=== PATIENT | female | born 1965 | race Caucasian/White ===

== ENCOUNTER 2017-03-04 10:31 | Inpatient (IN) | payer OTHER ==
[~2017-03-04] VITALS: Ht 160 cm; Wt 43.5 kg
--- NOTE | 2017-03-05 01:05 | NUR ---
PRE - ADMISSION NOTE: Patient is a 51 year old female AOX4, presented to [facility] to detoxify from Opioid/Heroin via IV. COWS 7. Patient appears anxious, nervous, tremors to touch, nasal stuffy, moist eyes, and sweating. Patient is cooperative, speech is clear and audible. Patient reports allergy to PCN. Patient's vital signs are as follows: BP 135/61/77, HR 83, T: 98.3, RA SPO2 98%, pain level "0/10". Patient denies any pain at this time. Patient instructed on unit protocol of vitals Q4H and COWS/CIWA assessments. Patient verbalized understanding and agreement. Patient also instructed on policy regarding destruction of any controlled substances/prescriptions brought to facility, and handling of all medications. Patient verbalized understanding and agreement. Will complete admission assessment when patient is brought up to unit.
[2017-03-05 01:12] VITALS: BP 135/61
--- NOTE | 2017-03-05 01:12 | NUR ---
ADMISSION NOTE New patient is a 51 year old female admitted to [facility] on 03/05/2017 at 0112 for medically supervised safety withdrawal from Opioid. Patient reports Allergy to Penicillin. Patient is on Full Code, Regular Diet, and Fall Precautions. Patient denies a history of withdrawal-induced seizures. Past Medical History: Anxiety, Depression, and Hepatitis C. Patient denies Past Surgical History. Patient "does not has PCP". Pre-assessment completed in intake. Patient provided UDS and Urine HCG, Qual test at this time. Height: 64in, Weight: 96 lbs by standing scale. Patient is ambulatory with steady gate, A&Ox4, speech is clear. VS upon admission: BP 135/61/77, HR 83, T: 98.3, RA SPO2 98%, RR: 19, pain level "0/10". COWS 7. Patient appears anxious, nervous, tremors to touch, nasal stuffy, moist eyes, and sweating. Patient denies SI/HI. Upon initial assessment respirations unlabored and even. Patient denies cough, SOB and chest pain. Lungs Sounds are clear bilaterally. Bowel Sounds active in all x4 quadrants. Abdomen is soft and non-tender. PERRLA, brisk capillary refill, manufacturing supervisor 2nd shift equal and strong. Skin is intact, warm and dry to touch. Patient reports the following Substances Use: "Heroin via IV 5-6 grams every day during last 1,5 years. Last used 3 grams on 03/04/2017 @AM". Longest sober period was "15 years: 1999 - 2014". Patient reports "Tobacco use since 1981 every day 1 pack = 20 cigarettes". Patient reports Treatment History: "[facility] in 1999". Patient did not brought medications. Patient oriented to his room, Nurse Call Light, and [facility] Floor. Encourage fluids as tolerated. Encourage to attend activities groups. All needs met. Safety measures on place. Call light within reach, bed in lowest position and locked, rails up bilaterally. Will continue to monitor closely.
[2017-03-05] MEDS ORDERED: BUPRENORPHINE HCL 2 MG TAB.SUBL SL PRN (01:30)
[2017-03-05] MEDS ORDERED: ONDANSETRON 4 MG/2 ML VIAL IM PRN (01:30)
[2017-03-05] MEDS ORDERED: DICYCLOMINE HCL 20 MG TABLET PO PRN (01:30)
[2017-03-05] MEDS ORDERED: MAGNESIUM HYDROXIDE 30 ML LIQUID UDC PO PRN (01:30)
[2017-03-05] MEDS ORDERED: LOPERAMIDE HCL 2 MG CAPSULE PO PRN ×2 (01:30)
[2017-03-05] MEDS ORDERED: CLONIDINE HCL 0.1 MG TABLET PO PRN (01:30)
[2017-03-05] MEDS ORDERED: ONDANSETRON ODT 4 MG TAB.RAPDIS SL PRN (01:30)
[2017-03-05] MEDS ORDERED: MIRALAX 17 GM POWD.PACK PO PRN (01:30)
[2017-03-05] MEDS ORDERED: MAG HYDROX/AL HYDROX/SIMETH 30 ML LIQUID UDC PO PRN (01:30)
[2017-03-05] MEDS ORDERED: IBUPROFEN 400 MG TABLET PO PRN (01:30)
[2017-03-05] MEDS ORDERED: ACETAMINOPHEN 325 MG TABLET PO PRN (01:30)
[2017-03-05] MEDS ORDERED: HYDROXYZINE PAMOATE 25 MG CAPSULE PO PRN (01:30)
[2017-03-05] MEDS: diphenhydrAMINE 50 MG CAPSULE PO PRN (01:49)
--- NOTE | 2017-03-05 01:49 | NUR ---
PRN BENADRYL 50 MG 1 CAP PO AND PRN VISTARIL 50 MG 2 CAP PO ADMINISTRATION Patient c/o insomnia and increased anxiety. PRN Benadryl 50 mg 1 cap PO and PRN Vistaril 50 mg 2 capsule PO administrated with full glass of water as ordered. Patient tolerated well. All needs met. Safety measures on place. Call light within reach, bed in lowest position and locked, bed rails up bilaterally. Will continue to monitor closely.
[2017-03-05 01:58] LABS: BASOPHILS % (AUTO) 0.7 % (0.0-2.0); EOSINOPHILS # (AUTO) 0.1 K/uL (0.0-0.7); EOSINOPHILS % (AUTO) 1.3 % (0.0-7.0); HEMATOCRIT 39.2 % (31.2-41.9); HEMOGLOBIN 13.2 g/dL (10.9-14.3); LYMPHOCYTES # (AUTO) 1.7 K/uL (20.0-40.0); LYMPHOCYTES % (AUTO) 30.4 % (20.5-51.5); MEAN CORPUSCULAR HEMOGLOBIN 27.8 uug (24.7-32.8); MEAN CORPUSCULAR HGB CONC 34 g/dL (32.3-35.6); MEAN CORPUSCULAR VOLUME 82.2 fL (75.5-95.3); MONOCYTES # (AUTO) 0.4 K/uL (2.0-10.0); MONOCYTES % (AUTO) 7.3 % (0.0-11.0); NEUTROPHILS # (AUTO) 3.3 K/uL (1.8-8.9); NEUTROPHILS % (AUTO) 60.3 % (38.5-71.5); PLATELET COUNT (AUTO) 235 K/uL (179-408); RED BLOOD CELL COUNT(AUTO) 4.77 MIL/uL (3.63-4.92); WHITE BLOOD COUNT (AUTO) 5.5 K/uL (3.8-11.8)
[2017-03-05 01:58] LABS: *URINE HCG, QUAL NEGATIVE (NEGATIVE)
[2017-03-05] MEDS ORDERED: diphenhydrAMINE 50 MG CAPSULE ONE (01:59)
[2017-03-05] MEDS ORDERED: HYDROXYZINE PAMOATE 25 MG CAPSULE ONE (01:59)
[2017-03-05 02:08] LABS: *AMPHETAMINE, URINE POSITIVE (NEGATIVE); *BARBITURATE, URINE NEGATIVE (NEGATIVE); *CANNABINOID, URINE NEGATIVE (NEGATIVE); *COCCAINE, URINE NEGATIVE (NEGATIVE); *OPIATE, URINE POSITIVE (NEGATIVE); *PHENCYCLIDINE SCREEN,URINE NEGATIVE (NEGATIVE)
[2017-03-05 02:27] LABS: ALANINE AMINOTRANSFERASE 30 U/L (14-59); ALKALINE PHOSPHATASE 92 U/L (50-136); AMYLASE 47 U/L (25-115); ASPARTATE AMINOTRANSFERASE 31 U/L (15-37); BILIRUBIN,TOTAL 0.4 mg/dL (0.2-1.0); CARBON DIOXIDE 28 mmol/L (21-32); CHLORIDE 103 mmol/L (98-107); CREATININE 0.7 mg/dL (0.6-1.3); GLUCOSE 96 mg/dL (74-106); LIPASE 147 U/L (73-393); MAGNESIUM 1.8 mg/dL (1.8-2.4); POTASSIUM 3.1 mmol/L (3.5-5.1); TOTAL PROTEIN, SERUM 8.6 g/dL (6.4-8.2); UREA NITROGEN, BLOOD 10 mg/dL (7-18)
[2017-03-05 02:35] LABS: THYROID STIMULATING HORMONE 0.466 mIU/mL (0.358-3.740)
[2017-03-05 02:36] LABS: ETHANOL < 3 MG/DL (0-0)
--- NOTE | 2017-03-05 02:49 | NUR ---
RE-ASSESSMENT Patient is sleeping. Respirations even and unlabored. RR 16. PRN Benadryl 50 mg 1 cap PO and PRN Vistaril 50 mg 2 capsule PO administrated @0149 were effective. All needs met. Safety measures on place. Call light within reach, bed in lowest position and locked, bed rails up bilaterally. Will continue to monitor closely.
[2017-03-05 04:00] VITALS: BP 142/67
[2017-03-05] MEDS ORDERED: POTASSIUM CHLORIDE 20 MEQ TAB.PRT.SR PO ONE (04:00)
--- NOTE | 2017-03-05 06:55 | NUR ---
END OF SHIFT Patient is a 51 year old female admitted on 03/05/2017 for Heroin dependence. Patient verbalized that she does not know why in UDS test result is positive for amphetamines. Patient reports Allergy to Penicillin. Patient is on Full Code, Regular Diet, and Fall Precautions. Patient denies a history of withdrawal-induced seizures. Past Medical History: Anxiety, Depression, and Hepatitis C. Patient denies Past Surgical History. Patient denies SI/HI. Last COWS 7 @0400. Patient presented with anxiety, agitation, nervousness, restlessness, nasal stuffy, moist eyes, and sweating. Respirations unlabored and even. Patient denies cough, SOB and chest pain. Abdomen is soft and non-tender. Skin is intact, warm and dry to touch. Last VS @0400: T: 98.3, HR: 83, BP: 142/67, RA SPO2: 100%, RR 18, pain level "0/10". Respirations unlabored and even. Patient denied cough, SOB, and chest pain. Abdomen is soft and non-tender. Skin remains intact, warm, and dry to touch. PRN Benadryl 50 mg 1 capsule PO administrated for insomnia @0149 and PRN Vistaril 50 mg 2 cap PO administrated for anxiety @0149 were effective. Patient slept 4 hours, intake 500 ml, voided x2. Encouraged fluids intake as tolerated. Encouraged to attend groups activities. All needs met. Safety measures on place. Call light within reach, bed in lowest position and locked, bed rails up bilaterally. Patient endorsed to day shift nurse. Report given. Will continue to monitor closely.
--- NOTE | 2017-03-05 07:30 | NUR ---
START OF SHIFT Pt 51 y/o female admitted for opioid dependence. Pt received in room on bed with eyes closed resting, but easily arousable to name. Pt alert and oriented to name, place, and time. Perrla. Skin warm and slightly moist to touch. Respirations even and unlabored. Pt appears slightly anxious this morning. Pt with goosebumps noted on bilateral arms. It was reported that pt slept for 4 hours last night. Bed on lowest position with side rails x2 up for safety. Call light within reach. No distress noted at this time.
[2017-03-05 08:00] VITALS: BP_SYST 109; BP_SYST 122; BP_DIAS 62; BP_DIAS 64
[2017-03-05] MEDS: METHOCARBAMOL 750 MG TABLET PO PRN (08:57)
[2017-03-05] MEDS: MULTIVITAMINS,THERAPEUTIC TABLET PO SCH (08:57)
--- NOTE | 2017-03-05 08:57 | NUR ---
PRN Pt states has generalized body aches /10. Robaxin po prn per MD order given and tolerated well.
--- NOTE | 2017-03-05 08:57 | NUR ---
PRN Pt with cows=13. Pt anxious and restless while laying in bed. Goosebumps noted. Pt also with c/o bodyaches, chills and sweats. Subutex sl prn per MD order given and tolerated well.
[2017-03-05] MEDS ORDERED: TUBERCULIN,PURIF.PROT.DERIV. 5 TU/0.1 ML TEST ID ONE (09:00)
--- NOTE | 2017-03-05 09:57 | NUR ---
PRN EVAL Pt with cows=3. Pt observed on in room with eyes closed resting, but easily arousable to name. No distress noted at this time.
--- NOTE | 2017-03-05 09:57 | NUR ---
ESTRELLA HUTTON Pt denies any body aches at this time.
[2017-03-05] MEDS ORDERED: LORAZEPAM 1 MG TABLET PO PRN (11:30)
[2017-03-05] MEDS: BUPRENORPHINE HCL 2 MG TAB.SUBL SL SCH ×3 (12:20→20:43)
--- NOTE | 2017-03-05 12:22 | NUR ---
PRN Pt agitated and restless in room. Ativan po prn per MD order given and tolerated well.
[2017-03-05 12:23] VITALS: BP 134/61
--- NOTE | 2017-03-05 13:22 | NUR ---
ESTRELLA HUTTON Pt observed in room on bed with eyes closed resting, but easily arousable to name. No distress noted at this time.
[2017-03-05] MEDS ORDERED: NICOTINE 14 MG/24HR PATCH TD PRN (13:30)
[2017-03-05] MEDS ORDERED: NICOTINE POLACRILEX 4 MG GUM-PK OF TEN BC PRN (13:30)
[2017-03-05 17:25] VITALS: BP 106/61
--- NOTE | 2017-03-05 18:46 | NUR ---
END OF SHIFT Pt 51 y/o female admitted for opioid dependence. Pt alert and oriented to name, place, and time. Perrla. Skin warm and moist to touch throughout the day. Pt with episodes of experiencing goosebumps throughout the day. Pt also with periods of anxiety this morning. Pt isolative to room with minimal peer interaction. Pt did not attend group activity today. Pt medication compliant and tolerated well. No ASE noted. Pt was seen by MD today. Bed on lowest position with side rails x2 up for safety. Call light within reach. No distress noted at this time. Pt started on a 5 day subutex taper today.
--- NOTE | 2017-03-05 18:46 | NUR ---
START OF SHIFT Patient is a 51 year old female admitted on 03/05/2017 for Heroin dependence, continue ordered 5 day Subutex Taper, which tolerated well without ASE. Patient reports Allergy to Penicillin. Patient is on Full Code, Regular Diet, and Fall Precautions. Patient denies a history of withdrawal-induced seizures. Past Medical History: Anxiety, Depression, and Hepatitis C. Patient denies Past Surgical History. Patient alert and orientedx4. COWS 5 @0400. Patient presented with anxiety, agitation, nervousness, restlessness, tremors that can be felt, and sweating. VS: T: 97.4, HR: 62, BP: 109/64, RA SPO2: 100%, RR: 18, pain level "0/10". Respirations unlabored and even. Patient denies cough, SOB and chest pain. Abdomen is soft and non-tender. Skin is intact, warm and dry to touch. Respirations unlabored and even. Patient denied cough, SOB, and chest pain. Abdomen is soft and non-tender. Skin is intact, warm, and dry to touch. Encouraged fluids intake as tolerated. Encouraged to attend groups activities. All needs met. Safety measures on place. Call light within reach, bed in lowest position and locked, bed rails up bilaterally. Patient endorsed to day shift nurse. Report given. Will continue to monitor closely.
[2017-03-05 20:00] VITALS: BP 109/64
[2017-03-05] MEDS: GABAPENTIN 300 MG CAPSULE PO SCH (20:42)
[2017-03-06] VITALS: BP 125/71
[2017-03-06 04:00] VITALS: BP 109/69
[2017-03-06 05:56] LABS: HEPATITIS B SURFACE AG Negative (Negative)
--- NOTE | 2017-03-06 07:02 | NUR ---
END OF SHIFT Patient is a 51 year old female admitted on 03/05/2017 for Heroin dependence, continues 5 day Subutex taper. She is tolerated well without ASE. Patient remains compliant with treatment, medications, and diet regime. Patient reports Allergy to Penicillin. Patient is on Full Code, Regular Diet, and Fall Precautions. Patient denies a history of withdrawal-induced seizures. Past Medical History: Anxiety, Depression, and Hepatitis C. Patient denies SI/HI. Last COWS 8 @0400. Patient presented with anxiety, agitation, nervousness, restlessness, nasal stuffy, moist eyes, and sweating. Last VS @0400: T: 98.4, HR: 82, BP: 109/69, RA SPO2: 98%, RR 16, pain level "0/10". Respirations unlabored and even. Patient denied cough, SOB, and chest pain. Skin remains intact, warm, and dry to touch. No PRN administrated last night cleaner. Patient slept 8 hours, intake 296 ml, voided x1. Encouraged fluids intake as tolerated. Encouraged to attend groups activities. All needs met. Safety measures on place. Call light within reach, bed in lowest position and locked, bed rails up bilaterally. Patient endorsed to day shift nurse. Report given.
--- NOTE | 2017-03-06 07:30 | NUR ---
START OF SHIFT NOTE Received report from night nurse, 51 year old female admitted for Opioid dependence. Patient has PMH of Anxiety, Depression, and Hepatitis C. Per endorsement patient did not receive any PRN'S, slept for 8 hours, and her COWS-8 at 0400. Received patient in room alert and oriented x 4. Educated patient on the current plan of care for the day and medication regimen. Safety measures in place. call light kept with in reach, Will continue to monitor.
[2017-03-06 08:00] VITALS: BP 139/90
[2017-03-06] MEDS: BUPRENORPHINE HCL 2 MG TAB.SUBL SL SCH ×3 (08:15→20:23)
[2017-03-06] MEDS: GABAPENTIN 300 MG CAPSULE PO SCH ×3 (08:15→20:22)
[2017-03-06] MEDS: MULTIVITAMINS,THERAPEUTIC TABLET PO SCH (08:15)
[2017-03-06 13:00] VITALS: BP 128/84
[2017-03-06] MEDS: DICYCLOMINE HCL 20 MG TABLET PO SCH ×2 (14:05→20:22)
[2017-03-06 16:00] VITALS: BP 124/78
[2017-03-06] MEDS: IBUPROFEN 600 MG TABLET PO PRN (16:57)
--- NOTE | 2017-03-06 16:57 | NUR ---
PRN IBUPROFEN Pt c/o 11/01 toothache, PRN Motrin 600mg PO administered as ordered. Assigned nurse to reassess.
--- NOTE | 2017-03-06 17:57 | NUR ---
MOTRIN REASSESSMENT Patient reported PRN Motrin was effective tooth ache decreased to 2/10. .
--- NOTE | 2017-03-06 19:05 | NUR ---
END OF SHIFT NOTE Patient cont with 5 days Subutex tolerating well. During shift patient received PRN Motrin for headache noted to be effective. Vital signs remained WNL. Patient attend groups and activities. Encourage Po fluids as tolerated. Last COWS score was 5 @ 1600. All needs attended, Safety measures in place, call light within reach. Patient endorsed to night nurse in stable condition.
--- NOTE | 2017-03-06 19:30 | NUR ---
Start of Shift Note: Report received from day shift nurse. Pt is a 51F, admitted for Heroin Dependence on 03/05/17. Pt was in room watching TV upon start of shift. Pt is AOx4 without s/s of acute distress noted. Pt is full code, on regular diet, and on fall precautions. Pt noted with allergy to Penicillins. Pt reports hx of Anxiety, Depression, and Hepatitis C. Pt is currently on 5-day Subutex taper to manage withdrawal symptoms. Per day shift nurse, pts last COWS was 5 at 1600. Bed in lowest position. Side rails up x2. Call light functioning and within reach. All needs attended and met. Will continue to monitor.
[2017-03-06 20:00] VITALS: BP 129/60
[2017-03-06] MEDS: diphenhydrAMINE 50 MG CAPSULE PO PRN (20:22)
--- NOTE | 2017-03-06 20:22 | NUR ---
Benadryl PRN: Pt c/o inability to sleep. Benadryl PRN given as ordered. Will continue to monitor.
[2017-03-06] MEDS: CLONIDINE HCL 0.1 MG TABLET PO SCH (20:36)
[2017-03-07] VITALS (7 sets, daily range): BP systolic 104–132; BP diastolic 44–78
[2017-03-07] MEDS: HYDROXYZINE PAMOATE 25 MG CAPSULE PO PRN (00:23)
--- NOTE | 2017-03-07 00:23 | NUR ---
Vistaril PRN: Pt c/o anxiety due to being unable to sleep. Vistaril PRN given as ordered. Will reassess.
--- NOTE | 2017-03-07 01:23 | NUR ---
Vistaril Reassessment: Pt stated she is still anxious about being unable to sleep but would like to try sleeping on her own. Will continue to monitor.
--- NOTE | 2017-03-07 02:33 | NUR ---
Clonidine PRN: Pt stated she is starting to feel anxious and agitated about her inability to sleep. BP 122/77, HR 81. Clonidine PRN given as ordered.
--- NOTE | 2017-03-07 03:30 | NUR ---
Clonidine Reassessment: Pt still awake but calm. Clonidine effective.
--- NOTE | 2017-03-07 06:58 | NUR ---
End of Shift Notes: Pt is 51F, admitted for Heroin Dependence on 03/05/17. Pt is AOx4 without s/s of acute distress. Pt is full code, on regular diet, and on fall/seizure precautions. Pt noted with allergy to Penicillins. Pt reports hx of Anxiety, Depression, and Hepatitis C. Pt slept for 3 hours. Respirations even and unlabored. Last COWS was 6 at 2000. Pt reported inability to sleep. Benadryl, Vistaril, Clonidine PRN given but was ineffective. Pt to talk to psychiatrist about getting sleep medication. No N/V noted during the shift. Fall precautions observed. Bed in lowest position. Side rails up x2. Call light functioning and within reach. All needs attended and met. Will endorse to day shift nurse.
[2017-03-07] MEDS: DICYCLOMINE HCL 20 MG TABLET PO SCH ×3 (08:42→20:50)
[2017-03-07] MEDS: CLONIDINE HCL 0.1 MG TABLET PO SCH (08:42)
[2017-03-07] MEDS: GABAPENTIN 300 MG CAPSULE PO SCH ×3 (08:42→20:51)
[2017-03-07] MEDS: MULTIVITAMINS,THERAPEUTIC TABLET PO SCH (08:43)
--- NOTE | 2017-03-07 08:43 | NUR ---
PRN MIRALAX POWDER Patient complains of constipation, last BM reported was 03/05/17. Miralax powder given. Will continue to moniopr patient.
[2017-03-07] MEDS ORDERED: BUPRENORPHINE HCL 2 MG TAB.SUBL SL SCH (09:00)
--- NOTE | 2017-03-07 09:04 | NUR ---
START OF SHIFT Received report from forms examiner nurse. Patient is 51 year old female admitted for medically supervised withdrawal from heroin. Patient is full code with allergy to penicinllin. On 5-day subutex taper. On assessment this AM: COWS: 3. Denies SOB, chest pain. Patients vitals signs WNL. Patient reports anxiety and stomach cramps. Denies stuffy nose, tremors, sweating, nausea, vomiting, diarrhea, body aches, goosebumps at this time. Compliant with AM meds. Complained of constipation, PRN miralax powder given. Tolerated breakfast without n/v and consumed about 80%. Patient has steady gait. Encouraged to attend group meetings today. Will continue to monitor patient. Addendum: 03/07/17 at 0917 by LYNETTE GARCÍA RN Patient complains of poor sleep, will notify psychiatrist.
[2017-03-07] MEDS: BUPRENORPHINE HCL 2 MG TAB.SUBL SL SCH ×2 (14:30→20:50)
--- NOTE | 2017-03-07 14:37 | NUR ---
Therapist prompted client about group times. Client stated she will attend all groups today.
[2017-03-07] MEDS ORDERED: PNEUMOCOCCAL 23-VAL P-SAC VAC 0.5 ML VIAL IM ONE (15:00)
[2017-03-07] MEDS ORDERED: INFLUENZA VACCINE 2017-2018 0.5 ML DISP.SYRIN IM ONE (15:00)
[2017-03-07] MEDS: IBUPROFEN 600 MG TABLET PO PRN (15:37)
--- NOTE | 2017-03-07 15:37 | NUR ---
Motrin 600mg PO given: Patient complained of 4/10 toothache. Able to chew oral intake. Non-pharmacological interventions provided but ineffective. Medicated patient with Motrin 600 mg PO as ordered. Will monitor for effectiveness.
--- NOTE | 2017-03-07 16:37 | NUR ---
REASSESSMENT PRN CHARISMARIN Patient reports 0/10 pain. Med effective.
--- NOTE | 2017-03-07 18:54 | NUR ---
END OF SHIFT Patient is 51 year old female admitted for medically supervised withdrawal from heroin. Patient is full code with allergy to penicinllin. On 5-day subutex taper. Most recent COWS: 2. Reports mild anxiety and body aches. Denies tremors, sweating, nausea, vomiting, stomach cramps, diarrhea, body aches, goosebumps at this time. Med complaint this shift. PRN miralax powder given for constipation, pending result. PRN motrin given for 4/10 toothache, effective 0/10 pain. PPD skin test read on LFA, negative. Ambulating with steady gait, no falls noted. No BM this shift. Encouraged to attend group meetings today. Will continue to monitor patient.
--- NOTE | 2017-03-07 19:15 | NUR ---
Start of Shift Note: Patient is a 51 y.o female admitted on 03/05/17 for Opiate dependence. Patient reported using Heroin 5-6 grams daily for 1 and a half years. Patient has PMHx of anxiety, Depression & Hepatitis C. No seizure history noted. Patient is on a regular diet with allergies to Penicillins. Full Code status noted. Skin noted to be intact. Patient is on a 5-day Subutex taper and tolerating well. Last COWS 2. Pt was given PRN Motrin & Miralax during day shift. Patient is alert & oriented x4. Patient is ambulatory with a steady gait. No shortness of breath noted. Respiration even & unlabored. Abdomen soft & non-distended. No nausea/vomiting noted. Patient complained of stomach cramps, 3/10 generalized body discomfort, sweating, chills & anxiety. No hand tremors noted. Patient denies SI/HI. Safety precautions are in place. Bed locked in lowest position. Both side rails up. Call light within pt's reach. Will continue to monitor patient.
[2017-03-07] MEDS: CLONIDINE HCL 0.2 MG TABLET PO SCH (20:50)
--- NOTE | 2017-03-07 20:50 | NUR ---
PRN Milk of Magnesia Pt received PRN Miralax during day time and was not effective. Pt still noted with no BM. PRN Milk of Magnesia administered as ordered. WIll continue to monitor effectiveness of medication.
--- NOTE | 2017-03-07 21:04 | NUR ---
MD Communication: Pt reports that PRN Benadryl not effective for sleep. Dr Sandhu contacted and new order received for PRN Trazodone 50mg PO HS PRN, may repeat x1 if necessary.
[2017-03-07] MEDS: TRAZODONE 50 MG TABLET PO PRN (21:39)
--- NOTE | 2017-03-07 21:39 | NUR ---
PRN Trazodone Patient complained of unable to fall asleep. PRN Trazodone administered as ordered. Will continue to monitor patient.
--- NOTE | 2017-03-07 23:00 | NUR ---
PRN Reassessment Patient asleep in bed and appears comfortable. No s/s of distress noted. Safety measures in place. Will continue to monitor patient.
[2017-03-08] VITALS: BP 95/48
[2017-03-08 04:00] VITALS: BP 92/40
--- NOTE | 2017-03-08 07:07 | NUR ---
End of Shift Note: Patient had an uneventful night. Patient continues on her Subutex taper and tolerating well. Last COWS is 4. Pt reported that taper medication is effective in controlling her withdrawal symptoms. Pt received PRN Milk of Magnesia for constipation & Trazodone for sleep. Patient remained stable and vitals WNL. Pt remained compliant with medications and treatment. Pt still asleep at this time with no s/s of distress noted. Patient slept for a total of 8 hours. Fluid intake: 855ml Voided 2x. Still no bowel movement noted. Will continue to monitor for BM. All needs attended & met. Safety measures in place. Will endorse pt to day shift nurse.
--- NOTE | 2017-03-08 07:31 | NUR ---
BEGINNING OF SHIFT Patient endorsement report received from night worker nurse, all pertinent information discussed. Patient is a 51 year old female, with admitting Dx: opiate dependence. Patient currently with on 5 day Subutex taper started on 03/05/2017, currently scheduled to begin day 3 of taper. Patient with last cow score of: 4. Received PRN: Milk of magnesium, and trazodone. Patient slept for 8 hours. Patient received awake, alert and oriented x4, educated regarding plan of care for the day and medication regimen. safety measures in place. fall and seizure precautions observed. will continue to monitor closely.
[2017-03-08 08:01] VITALS: BP 90/67
[2017-03-08] MEDS: CLONIDINE HCL 0.1 MG TABLET PO SCH (09:00)
[2017-03-08] MEDS: GABAPENTIN 300 MG CAPSULE PO SCH ×3 (09:03→20:39)
[2017-03-08] MEDS: DICYCLOMINE HCL 20 MG TABLET PO SCH ×3 (09:03→20:39)
[2017-03-08] MEDS: IBUPROFEN 600 MG TABLET PO PRN ×3 (09:03→20:39)
[2017-03-08] MEDS: MULTIVITAMINS,THERAPEUTIC TABLET PO SCH (09:03)
--- NOTE | 2017-03-08 09:03 | NUR ---
PRN MOTRIN Patient c/o toothache 11/01, provided with non pharmacological interventions with no relief, adminstered motrin 600 mg po as ordered, will monitor effectiveness of medication.
[2017-03-08] MEDS: BUPRENORPHINE HCL 2 MG TAB.SUBL SL SCH ×3 (09:04→20:40)
--- NOTE | 2017-03-08 10:03 | NUR ---
MOTRIN REASSESSMENT Patient reports medication effective, decrease in toothache current pain level 2/10, tolerable as per patient. will continue to monitor.
--- NOTE | 2017-03-08 12:37 | NUR ---
Therapist prompted to come to group, client agreed to attend.
[2017-03-08 13:30] VITALS: BP 107/59
--- NOTE | 2017-03-08 15:23 | NUR ---
PRN Motrin 600mg PO administered for Left upper molar pain 11/01. Call light within reach. Primary nurse to reassess in an hour.
--- NOTE | 2017-03-08 16:23 | NUR ---
MOTRIN REASSESSMENT Patient reports medication effective, decrease in toothache current pain level 2/10, tolerable as per patient. will continue to monitor.
[2017-03-08 17:33] VITALS: BP 111/64
--- NOTE | 2017-03-08 19:04 | NUR ---
END OF SHIFT Patient alert and oriented x4, vital signs with in normal limits during shift. Patient compliant with therapeutic plan of care. Patient with admitting Dx: opiate dependence. Continues on 5 day Subutex taper as ordered, well tolerated. Patient currently on day 3 of taper, well tolerated. No ASE noted. 0900 assessment patient presented with: heart rate of: 84, c/o chills, mild bone and joint aches, stomach cramps, and mild anxiety with cow score of: 5; 1300 assessment patient presented with: c/o chills, mild bone and joint aches, stomach cramps, and mild anxiety with cow score of: 5; 1700 assessment patient presented with: c/o chills, mild bone and joint aches, stomach cramps, and mild anxiety with cow score of: 5. During shift patient received PRN Motrin x2 as ordered for right upper molar toothache., medication effective. Patient encouraged adequate PO fluid intake as tolerated. Encouraged patient to attend group therapies/sessions to learn new coping skills to prevent relapse, noted attending and participating. Patient denies any SI/HI. Safety measures in place. Call light kept with in reach, patient endorsed to night patrol inspector nurse, all pertinent information discussed.
--- NOTE | 2017-03-08 19:15 | NUR ---
Start of Shift Note: Patient is a 51 y.o female admitted on 03/05/17 for Opiate dependence. Patient has PMHx of anxiety, Depression & Hepatitis C. No seizure history noted. Patient is on a regular diet with allergies to Penicillins. Full Code status noted. Skin noted to be intact. Patient continues on a 5-day Subutex taper and tolerating well. Last COWS 4. Pt was given PRN Motrin 2x for toothache during day shift and was effective. Patient is alert & oriented x4. Patient is ambulatory with a steady gait. No shortness of breath noted. Respiration even & unlabored. Abdomen soft & non-distended. No nausea/vomiting noted. Patient complained of stomach cramps, 3/10 generalized body discomfort, sweating, chills, stuffy nose & anxiety. Hand tremors felt but not seen. Patient denies SI/HI. Safety precautions are in place. Bed locked in lowest position. Both side rails up. Call light within pt's reach. Will continue to monitor patient.
[2017-03-08 20:00] VITALS: BP 126/63
[2017-03-08] MEDS: DOCUSATE SODIUM 100 MG CAPSULE PO SCH (20:39)
[2017-03-08] MEDS: TRAZODONE 50 MG TABLET PO PRN (20:39)
--- NOTE | 2017-03-08 20:39 | NUR ---
PRN Trazodone & Motrin Patient complains that she is unable to fall asleep and also complains toothache. PRN Trazodone and Motrin administered as ordered. Will continue to monitor patient.
[2017-03-08] MEDS: BENZOCAINE ORAL CARE 12 ML BOTTLE MM PRN (20:41)
[2017-03-08] MEDS: CLONIDINE HCL 0.2 MG TABLET PO SCH (21:00)
--- NOTE | 2017-03-08 21:39 | NUR ---
PRn Reassessment Pt still awake at this time. Pt verbalized relief from toothache. Pt observed walking in the hallway with no facial grimacing noted. Will continue to monitor patient.
[2017-03-09] MEDS: HYDROXYZINE PAMOATE 25 MG CAPSULE PO PRN (03:07)
[2017-03-09] MEDS: METHOCARBAMOL 750 MG TABLET PO PRN (03:08)
--- NOTE | 2017-03-09 03:08 | NUR ---
PRN RObaxin and Vistaril Patient complains of anxiety & body aches. PRN Robaxin PO & Vistaril PO administered as ordered. Will continue to monitor patient.
--- NOTE | 2017-03-09 04:08 | NUR ---
PRN Reassessment Pt asleep in bed at this time and appears comfortable. No facial grimacing noted. No s/s of any distress. Safety measures in place. Will continue to monitor patient.
[2017-03-09] MEDS: IBUPROFEN 600 MG TABLET PO PRN ×3 (06:06→21:00)
--- NOTE | 2017-03-09 07:21 | NUR ---
End of Shift Note: Patient is a 51 y.o female admitted for Opiate dependence. Patient had an uneventful night. Patient continues on her Subutex taper and tolerating well. Last COWS is 3. Pt reported that taper medication is effective in controlling her withdrawal symptoms. Pt received PRN Trazodone, Motrin x2, Anbesol, Vistaril & Robaxin during my shift and was effective. Patient remained stable and vitals WNL. Pt remained compliant with medications and treatment. Patient slept for a total of 3 hours. Fluid intake: 1557ml. Will continue to encourage pt to increase fluid intake. Voided 3x and no bowel movement noted. Will continue to monitor for BM. All needs attended & met. Safety measures in place. Will endorse pt to day shift nurse.
--- NOTE | 2017-03-09 07:32 | NUR ---
BEGINNING OF SHIFT Patient endorsement report received from warehouse shift supervisor nurse, all pertinent information discussed. Patient is a 51 year old female, with admitting Dx: opiate dependence. Patient currently with on 5 day Subutex taper started on 03/05/2017, currently scheduled to begin day 4 of taper. Received PRN: Motrin x2, Anbesol, Trazodone, Vistaril, and Robaxin. Patient slept for 6 hours. Patient received awake, alert and oriented x4, educated regarding plan of care for the day and medication regimen. safety measures in place. fall and seizure precautions observed. will continue to monitor closely.
[2017-03-09 08:42] VITALS: BP 150/71
[2017-03-09] MEDS: BENZOCAINE ORAL CARE 12 ML BOTTLE MM PRN (08:43)
--- NOTE | 2017-03-09 08:43 | NUR ---
PRN ANBESOL PRN Anbesol administered as ordered for Left upper molar pain. Call light within reach. Will monitor effectiveness of medication.
[2017-03-09] MEDS: CLONIDINE HCL 0.1 MG TABLET PO SCH (08:44)
[2017-03-09] MEDS: GABAPENTIN 300 MG CAPSULE PO SCH ×3 (08:44→21:00)
[2017-03-09] MEDS: MULTIVITAMINS,THERAPEUTIC TABLET PO SCH (08:44)
[2017-03-09] MEDS: DICYCLOMINE HCL 20 MG TABLET PO SCH ×3 (08:45→21:00)
[2017-03-09] MEDS ORDERED: BUPRENORPHINE HCL 2 MG TAB.SUBL SL SCH (09:00)
--- NOTE | 2017-03-09 09:43 | NUR ---
MOTRIN REASSESSMENT Patient reports medication effective, decrease in toothache. will continue to monitor.
--- NOTE | 2017-03-09 12:16 | NUR ---
Therapist prompted client to attend group, client agreed to attend group.
--- NOTE | 2017-03-09 13:04 | NUR ---
PRN MOTRIN PRN Motrin 600mg PO administered for Left upper molar pain 11/01. Call light within reach. Will monitor effectiveness of medication.
[2017-03-09 13:48] VITALS: BP 116/69
--- NOTE | 2017-03-09 14:04 | NUR ---
MOTRIN REASSESSMENT Patient reports medication effective, decrease in toothache current pain level 2/10, tolerable as per patient. will continue to monitor.
--- NOTE | 2017-03-09 15:30 | NUR ---
MD COMMUNICATION/POSSIBLE TOOTH INFX Patient reports increase in pain/discomfort of left upper molar, toothache. per patient reports she feels she is getting an "abscess" area assessed noted with redness and slight swelling, dr. vasquez notified, per MD he will assess patient when he arrives on the unit, patient is afebrile. will continue to monitor.
[2017-03-09 16:05] VITALS: BP 121/66
[2017-03-09] MEDS: CLINDAMYCIN HCL 150 MG CAPSULE PO SCH ×2 (16:47→21:00)
--- NOTE | 2017-03-09 18:58 | NUR ---
END OF SHIFT Patient alert and oriented x4, vital signs with in normal limits during shift. Patient compliant with therapeutic plan of care. Patient with admitting Dx: opiate dependence. Continues on 5 day Subutex taper as ordered, well tolerated. Patient completed 5 day Subutex taper as ordered, and is scheduled to be discharged tomorrow morning, patient noted self motivated towards sobriety. 0900 assessment patient presented with: c/o chills, mild bone and joint aches, and anxiety with cow score of: 4; 1300 assessment patient presented with: mild anxiety with ciwa score of: 1; 1700 assessment patient presented with: mild anxiety with ciwa score of:1. During shift patient received PRN Motrin x1 and Anbesol as ordered for right upper molar toothache., medication effective. Patient also started on ATB therapy for possible tooth infection. Administered first dose as ordered during shift. Patient afebrile, skin warm and dry to touch. Patient encouraged adequate PO fluid intake as tolerated. Encouraged patient to attend group therapies/sessions to learn new coping skills to prevent relapse, noted attending and participating. Patient denies any SI/HI. Safety measures in place. Call light kept with in reach, patient endorsed to car shifter nurse, all pertinent information discussed.
[2017-03-09 20:00] VITALS: BP 122/51
[2017-03-09] MEDS: DOCUSATE SODIUM 100 MG CAPSULE PO SCH (21:00)
[2017-03-09] MEDS: CLONIDINE HCL 0.2 MG TABLET PO SCH (21:00)
[2017-03-09] MEDS: TRAZODONE 50 MG TABLET PO PRN (21:00)
[2017-03-09] MEDS: LACTOBACILLUS RHAMNOSUS GG 1 EACH CAPSULE PO SCH (21:00)
--- NOTE | 2017-03-09 22:00 | NUR ---
PRn Reassessment Pt asleep in bed and appears comfortable. No s/s of pain/discomfort noted. No facial grimacing. Will continue to monitor patient.
[2017-03-10] MEDS ORDERED: CLON0.1T14 PO (01:46)
[2017-03-10] MEDS ORDERED: NICO1PAT25 TD (01:46)
[2017-03-10] MEDS ORDERED: TRAZ-144 PO (01:46)
[2017-03-10] MEDS ORDERED: METH-406 PO (01:46)
[2017-03-10] MEDS ORDERED: HYDR-3895 PO (01:46)
[2017-03-10] MEDS ORDERED: NICO4GUM38 BC (01:46)
[2017-03-10] MEDS ORDERED: GABA-534 PO (01:46)
[2017-03-10] MEDS ORDERED: CLIN150C15 PO (01:46)
[2017-03-10] MEDS ORDERED: DICY20TA28 PO (01:46)
[2017-03-10] MEDS ORDERED: LACT1CAP57 PO (01:46)
[2017-03-10] MEDS: HYDROXYZINE PAMOATE 25 MG CAPSULE PO PRN (02:58)
[2017-03-10] MEDS: METHOCARBAMOL 750 MG TABLET PO PRN (02:58)
--- NOTE | 2017-03-10 02:58 | NUR ---
PRN Administration Patient awake and complained of abdominal cramping and body aches. Pt appears restless and slightly anxious. PRN Vistaril, Robaxin & Bentyl administered as ordered. Will continue to monitor patient.
[2017-03-10] MEDS: CLINDAMYCIN HCL 150 MG CAPSULE PO SCH ×2 (03:00→09:22)
[2017-03-10 03:02] VITALS: BP 95/52
[2017-03-10] MEDS ORDERED: CLINDAMYCIN HCL 150 MG CAPSULE ONE (03:11)
[2017-03-10] MEDS ORDERED: CLINDAMYCIN HCL 300 MG CAPSULE ONE (03:12)
--- NOTE | 2017-03-10 03:58 | NUR ---
PRN Reassessment Patient asleep in bed and appear calm and comfortable. no s/s of pain/discomfort noted. Safety measures in place. Will continue to monitor patient.
--- NOTE | 2017-03-10 07:04 | NUR ---
End of Shift Note: Patient is a 51 y.o female admitted for Opiate dependence. Patient had an uneventful night. Patient completed her Subutex taper and she is scheduled to be discharge today. Last COWS is 4 @ 0300. Pt received PRN Trazodone, Motrin, Bentyl, Vistaril & Robaxin during my shift and was effective. Patient remained stable and vitals WNL. Pt remained compliant with medications and treatment. Pt will continue to on ATB for tooth abscess. Patient slept for a total of 5 hours. Fluid intake: 1250ml. Will continue to encourage pt to increase fluid intake. Voided 3x and no bowel movement noted. All needs attended & met. Safety measures in place. Will endorse pt to day shift nurse.
--- NOTE | 2017-03-10 07:56 | NUR ---
START OF SHIFT NOTE Received report from night nurse, 51 year old female admitted for Opioid dependence. Patient has PMH of Anxiety, Depression, and Hepatitis C. Per endorsement patient received PRN'S effective per night nurse, slept for 6 hours, and her COWS-4 at 0400. Patient scheduled for discharge today. Received patient in room alert and oriented x 4. Educated patient on the current plan of care for the day and medication regimen. Safety measures in place. call light kept with in reach, Will continue to monitor.
[2017-03-10 08:00] VITALS: BP 105/74
[2017-03-10] MEDS: MULTIVITAMINS,THERAPEUTIC TABLET PO SCH (08:25)
[2017-03-10] MEDS: LACTOBACILLUS RHAMNOSUS GG 1 EACH CAPSULE PO SCH (08:25)
[2017-03-10] MEDS: DICYCLOMINE HCL 20 MG TABLET PO SCH (08:25)
[2017-03-10] MEDS: GABAPENTIN 300 MG CAPSULE PO SCH (08:25)
[2017-03-10 08:26] VITALS: BP 105/74
[2017-03-10] MEDS: CLONIDINE HCL 0.1 MG TABLET PO SCH (08:26)
--- NOTE | 2017-03-10 09:34 | NUR ---
DISCHARGE NOTE Patient is in stable condition. Vital signs WNL,Patient is alert oriented x4, Skin intact warm and dry to touch. Patient denies any SI/HI ideations. All discharge paper work done signed and dated. Patient educated about discharge instructions, Pt verbalized understanding. Patient 's last COWS score was 2. Patient discharged from [facility] on 03/10/17 at 0934. Patient left the building with all of her belongings and prescriptions, Patient did not bring any medications with her to the unit. has been contracted and notified of Pt's discharge.
== END 2017-03-10 09:34 | DRG 895 ==
LOC: SRC 03-05 00:31
PROVIDERS: ADMIT Internal Medicine; ATTEND Internal Medicine
PROC: HZ2ZZZZ Detoxification Services for Substance Abuse Treatment (ICD-10-PCS; principal; 2017-03-05)
PROC: HZ41ZZZ Group Counseling for Substance Abuse Treatment, Behavioral (ICD-10-PCS; 2017-03-06)
PROC: HZ31ZZZ Individual Counseling for Substance Abuse Treatment, Behavioral (ICD-10-PCS; 2017-03-07)
DX: F11.23 Opioid dependence with withdrawal (principal); F31.9 Bipolar disorder, unspecified; B18.2 Chronic viral hepatitis C; E87.6 Hypokalemia; F17.210 Nicotine dependence, cigarettes, uncomplicated; K59.03 Drug induced constipation; F41.9 Anxiety disorder, unspecified; Z91.89 Other specified personal risk factors, not elsewhere classified
CPT/HCPCS: 36415; 70030-TC; 80307; 80324; 80361; 83690; 83735; 84443; 84703; 85025; 86580; 86592; 86705; 86803; 87340; 87806; 90686; 90732; A9150; G0480; Q0163